=== PATIENT | male | born 1955 | race Caucasian/White ===

== ENCOUNTER 2024-01-26 13:30 | Outpatient (OUT) | payer OTHER, SELFPAY ==
--- NOTE | 2024-01-26 13:39 | ECG_ITS ---
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
--- NOTE | 2024-01-26 14:22 | P.GSHP_ITS ---
History of Present Illness History of Present Illness Chief complaint: RIGHT KIDNEY STONE Narrative: Patient presents for preadmission testing. Please see HPI from Dr. Mclain office dated 01/17/2024. Review of Systems ROS Narrative Please see ROS from Dr. Mclain office dated 01/17/2024. [facility] Medical History (Updated 01/26/24 @ 14:07 by Brittany Johnston NP) Urinary urgency ?R39.15 - Urgency of urination (ICD-10) Umbilical hernia ?K42.9 - Umbilical hernia without obstruction or gangrene (ICD-10) Constipation ?K59.00 - Constipation, unspecified (ICD-10) Nocturia ?R35.1 - Nocturia (ICD-10) Nasal congestion ?R09.81 - Nasal congestion (ICD-10) COVID-19 ?U07.1 - COVID-19 (ICD-10) Sleep apnea ?G47.30 - Sleep apnea, unspecified (ICD-10) GERD (gastroesophageal reflux disease) ?K21.9 - Gastro-esophageal reflux disease without esophagitis (ICD-10) Kidney stones ?N20.0 - Calculus of kidney (ICD-10) Heartburn ?R12 - Heartburn (ICD-10) High cholesterol ?E78.00 - Pure hypercholesterolemia, unspecified (ICD-10) Diabetes ?E11.9 - Type 2 diabetes mellitus without complications (ICD-10) Melanocytic nevi of trunk ?D22.5 - Melanocytic nevi of trunk (ICD-10) Impotence ?N52.9 - Male erectile dysfunction, unspecified (ICD-10) Incomplete bladder emptying ?R33.9 - Retention of urine, unspecified (ICD-10) Fatigue ?R53.83 - Other fatigue (ICD-10) Dysphagia ?R13.10 - Dysphagia, unspecified (ICD-10) Hearing loss ?H91.90 - Unspecified hearing loss, unspecified ear (ICD-10) BPH (benign prostatic hyperplasia) ?N40.0 - Benign prostatic hyperplasia without lower urinary tract symptoms (ICD-10) S/P extracorporeal shock wave therapy ?Z98.890 - Other specified postprocedural states (ICD-10) Surgical History (Updated 01/26/24 @ 14:07 by Brittany Johnston NP) S/P cystoscopy ?Z98.890 - Other specified postprocedural states (ICD-10) S/P ureteral stent placement ?Z96.0 - Presence of urogenital implants (ICD-10) H/O hand surgery ?Z98.890 - Other specified postprocedural states (ICD-10) History of colonoscopy ?Z98.890 - Other specified postprocedural states (ICD-10) Family History (Updated 01/26/24 @ 14:07 by Brittany Johnston NP) Other Cancer Family history of hypertension Family history of stroke Social History (Updated 01/26/24 @ 13:57 by Brittany Johnston NP) Within the past year, how often did you have a drink containing alcohol: monthly or less Smoking status: Never smoker Highest level of school completed/degree received: high school graduate Meds Home Medications and Allergies Home Medications ?Medication ?Instructions ?Recorded ?Confirmed ?Type famotidine 40 mg tablet 40 mg PO DAILY 01/26/24 01/26/24 History finasteride 5 mg tablet 5 mg PO DAILY 01/26/24 01/26/24 History fluticasone propionate 50 2 spray intranasal Q12H PRN nasal 01/26/24 01/26/24 History mcg/actuation nasal congestion spray,suspension lactobacillus combination no.4 3 3,000 mmu cells PO DAILY 01/26/24 01/26/24 History billion cell capsule (Probiotic) lovastatin 40 mg tablet 40 mg PO DAILY 01/26/24 01/26/24 History metformin 1,000 mg tablet 2,000 mg PO DAILY 01/26/24 01/26/24 History pioglitazone 45 mg tablet 45 mg PO DAILY 01/26/24 01/26/24 History potassium bicarbonate-citric acid 25 meq PO BID 01/26/24 01/26/24 History 25 mEq effervescent tablet (Klor-Con/EF) tamsulosin 0.4 mg capsule 0.4 mg PO DAILY 01/26/24 01/26/24 History turmeric 400 mg capsule mg PO 01/26/24 History Allergies Allergy/AdvReac Type Severity Reaction Status Date / Time No Known Drug Allergies Allergy Verified 01/26/24 13:54 Exam Narrative Exam Narrative: Constitutional: Awake, alert, comfortable, well-appearing, nontoxic, interactive, vital signs as charted Head: Normocephalic, atraumatic Neck: Supple, normal appearance, normal range of motion, no meningeal signs, no lymphadenopathy Respiratory: No respiratory distress, breath sounds clear Cardiovascular: Regular rate and rhythm, strong and regular heart tones Abdomen: Nontender, normal bowel sounds, soft, no CVA tenderness Musculoskeletal: Normal gait, no swelling or edema Skin: No rashes or induration, no lesions, only visible skin inspected Neuro: No neurological deficits, normal sensation Psychiatric: Oriented ?3, normal affect Assessment and Plan Assessment and Plan (1) Kidney stones: Plan Right ESWL scheduled with Dr. Mclain 02/09/2024.
[2024-01-26 14:35] LABS: Basophils Absolute Auto 0.1 10^3/uL (0.0-0.1); Basophils Percent Auto 0.7 % (0.2-2.0); Eosinophils Absolute Auto 0.1 10^3/uL (0.0-0.7); Eosinophils Percent Auto 1.9 % (0.9-7.0); Hemoglobin 13.9 g/dL (14.0-18.0); Immature Granulocytes Abs Auto 0.02 10^3/uL (0.00-0.03); Immature Granulocytes Pct Auto 0.3 % (0.0-0.5); Lymphocytes Absolute Auto 1.8 10^3/uL (1.2-3.8); Lymphocytes Percent Auto 24.1 % (20.5-60.0); Mean Corpuscular HGB Conc 33.1 g/dL (29.9-35.2); Mean Corpuscular Hemoglobin 32.2 pg (25.9-34.0); Mean Corpuscular Volume 97.2 fL (80.0-94.0); Mean Platelet Volume 10.3 fL (9.5-13.5); Monocytes Absolute Auto 0.6 10^3/uL (0.3-0.8); Monocytes Percent Auto 7.6 % (1.7-12.0); Neutrophils Absolute Auto 4.8 10^3/uL (1.4-6.5); Neutrophils Percent Auto 65.4 % (43.0-75.0); Platelet Count 222 10^3/uL (150-450); Red Blood Count 4.32 10^6/uL (4.70-6.10); Red Cell Distribution Width 13.1 % (11.0-15.0); White Blood Count 7.4 10^3/uL (4.0-11.0)
[2024-01-26 14:58] LABS: Anion Gap 14.5; BUN Creatinine Ratio 10.7; Calcium 9.4 mg/dL (8.5-10.1); Carbon Dioxide 25.3 mmol/L (21.0-32.0); Chloride 103 mmol/L (98-107); Estimated GFR (African America >60 (>=60); Estimated GFR (Non-African Ame 59 (>=60); Glucose 87 mg/dL (74-106); Potassium 3.8 mmol/L (3.5-5.1); Sodium 139 mmol/L (136-145)
[2024-01-26 15:27] LABS: INR 0.98; Partial Thromboplastin Time 28.5 sec (22.3-36.2); Prothrombin Time 10.4 sec (9.0-11.6)
== END 2024-01-26 13:31 | disposition home or self-care (01) ==
LOC: PST 13:34
PROVIDERS: Family Provider Family Medicine; PCP Family Medicine; Visit Provider Urology
DX: Z01.810 Encounter for preprocedural cardiovascular examination (principal); Z01.812 Encounter for preprocedural laboratory examination; Z01.818 Encounter for other preprocedural examination; N20.0 Calculus of kidney
CPT/HCPCS: 80048; 85025; 85610; 85730; 93005; G0463

== ENCOUNTER 2024-02-09 07:31 | Day surgery (SDC) | payer OTHER, SELFPAY ==
[2024-01-26 14:17] VITALS: BP 143/82; PULSE 62; TEMP 36.2; O2SAT 98; BMI 31.2
[2024-02-09] VITALS (12 sets, daily range): BP systolic 135–156; BP diastolic 73–87; PULSE 54–91; TEMP 36.2–36.4; O2SAT 92–100; BMI 31.3
--- NOTE | 2024-02-09 07:30 | XR_ITS ---
The [address] [address] Patient Name: YENNY HENDERSON MRN: [id number] date: 1955 Sex: M Assigned Patient Location: [facility] Current Patient Location: Accession/Order Number: [id number] Exam Date: 02/09/2024 07:40 Report Date: 02/10/2024 05:25 At the request of: GILES MENA Procedure: XR abdomen 1V EXAMINATION: XR abdomen 1V HISTORY: kidney stones COMPARISON: No relevant comparison available. FINDINGS: KIDNEY/URETER - RIGHT: 2 stones projecting over inferior pole, largest is 6 mm. KIDNEY/URETER - LEFT: Several tiny calcifications projecting over superior pole. PELVIS: No visible ureteral stones. BOWEL: No abnormal dilation or deviation. BONES: No acute abnormality. OTHER: Negative. No abnormal gaseous collections. XR/XR abdomen 1V IMPRESSION: 1. Bilateral nephrolithiasis. No prior studies for comparison. Electronically authenticated by: JEFF CHAMBERLAIN Date: 02/10/2024 05:25
[2024-02-09 08:01] LABS: Glucometer 98 mg/dL (74-106)
[2024-02-09] MEDS: LACTATED RINGER'S SOLUTION 1,000 ML 50 ML IV ×2 (08:10→10:18)
[2024-02-09] MEDS: CEFAZOLIN SODIUM/DEXTROSE,ISO 1 GM/50 ML IV.SOLN IV (08:50)
--- NOTE | 2024-02-09 09:37 | P.URON_ITS ---
Urology Surgery Operative Note Operative Note Procedure Date: 02/09/24 Time Out Performed: yes Pre-op Diagnosis: Right nephrolithiasis Post-op Diagnosis: same as pre-op Procedures performed: 1. Right ESWL. Anesthesia: General-LMA Primary Surgeon: Felipe Mclain Complications: None Estimated blood loss (mL): 0 Findings: 2, nonobstructing right renal calculi Specimens: None Drains: None Indications for Procedures: This gentleman has recurrent right nephrolithiasis. He has 2 stones each of which are 4 to 5 mm in the lower pole. He now presents for right ESWL. He has signed an informed consent after risks were explained. Some of these risks include bleeding, perinephric hematoma, infection and anesthesia to name a few. Detailed description of Procedure: The patient was brought to the Operating Room and placed on Siemens electromagnetic lithotripsy treatment table in the supine position. SCDs were placed on their lower extremities and turned on and functioning during the entire case. Timeout was done by all parties in the room. We all agreed upon the patient's identification and the planned procedures for this patient. General Anesthesia was then administered via LMA. Treatment head was then brought to the patient's correct side. While using flourscopy the stones were identified and lined up into the crosshairs. Both stones were within the blast path. We then began applying shocks at power level 2.0 and increased to a maximum power level of 3.5. Intermittent fluoroscopy showed that the stones slowly began changing shape. We applied a total of 3000 shocks. Our last fluoroscopic image revealed presumed fragmentation and gravel forming within calyces. The procedure was then terminated. [facility] then [facility] and wheeled to PACU in stable condition.
== END 2024-02-09 11:30 | disposition home or self-care (01) ==
PROVIDERS: Family Provider Family Medicine; PCP Family Medicine; Visit Provider Urology
PROC: (CPT 873; principal; 2024-02-09 08:50)
DX: N20.0 Calculus of kidney (principal); K21.9 Gastro-esophageal reflux disease without esophagitis; N40.1 Benign prostatic hyperplasia with lower urinary tract symptoms; G47.30 Sleep apnea, unspecified; E11.9 Type 2 diabetes mellitus without complications; R39.15 Urgency of urination; R35.1 Nocturia; Z86.16 Personal history of COVID-19; E78.00 Pure hypercholesterolemia, unspecified; N52.9 Male erectile dysfunction, unspecified; R33.9 Retention of urine, unspecified; H91.90 Unspecified hearing loss, unspecified ear; Z79.84 Long term (current) use of oral hypoglycemic drugs; E66.9 Obesity, unspecified; Z87.442 Personal history of urinary calculi; Z68.31 Body mass index [BMI] 31.0-31.9, adult
CPT/HCPCS: 50590; 36415; 74018; 82948; J1094; J2704

== ENCOUNTER 2024-03-08 08:59 | Day surgery (SDC) | payer OTHER, SELFPAY ==
[2024-03-08] VITALS (13 sets, daily range): BP systolic 130–182; BP diastolic 79–98; PULSE 54–93; TEMP 36.4; O2SAT 94–99; BMI 30.9
--- NOTE | 2024-03-08 | FL_ITS ---
[address] [address] Patient Name: YENNY HENDERSON MRN: [id number] date: 1955 Sex: M Assigned Patient Location: [facility] Current Patient Location: [facility] Accession/Order Number: [id number] Exam Date: 03/08/2024 12:00 Report Date: 03/09/2024 08:17 At the request of: GILES MENA Procedure: FL fluoroscopy <1hr NON-READ EXAM: FL fluoroscopy <1hr NON-READ HISTORY: TECHNIQUE: FINDINGS: Please see Operative Report. Electronically authenticated by: RADIOLOGIST NO Date: 03/09/2024 08:17
[2024-03-08 09:18] LABS: Glucometer 90 mg/dL (74-106)
[2024-03-08] MEDS: LACTATED RINGER'S SOLUTION 1,000 ML 50 ML IV ×2 (09:26→12:48)
[2024-03-08] MEDS: CEFAZOLIN SODIUM/DEXTROSE,ISO 1 GM/50 ML IV.SOLN IV (11:42)
--- NOTE | 2024-03-08 13:05 | PM.URSON ---
Urology Surgery Operative Note Operative Note Procedure Date: 03/08/24 Time Out Performed: yes Pre-op Diagnosis: Right ureteral and renal calculi Post-op Diagnosis: same as pre-op Procedures performed: 1. Cystoscopy. 2. Right ureteroscopy. 3. Thulium laser lithotripsy of right ureteral calculi. 4. Thulium laser lithotripsy of right renal calculi.5. Placement of 6 Pakistani variable length right ureteral stent Anesthesia: General-LMA Primary Surgeon: Felipe Mclain Complications: None Estimated blood loss (mL): 5 Findings: 2 right proximal ureteral calculi and multiple less than 5 mm right renal calculi Specimens: None Drains: 6 Pakistani variable length right ureteral stent Indications for Procedures: This gentleman has obstructing right ureteral calculi and ipsilateral right renal calculi. He now presents for ureteroscopic stone manipulation and probable stent placement. He has signed an informed consent for these procedures after risks were explained. Detailed description of Procedure: The patient was brought to the operating room and placed on the operating room table in the supine position. SCDs were placed on the lower extremities and turned on and functioning during the entire case. Timeout was done by all parties in the room. We all agreed upon the patient's identification and the planned procedures for this patient. Genn. anesthesia was then administered. The patient was then repositioned into the modified dorsal lithotomy position. All pressure points were satisfactorily padded. Genitalia were sterilely prepped and draped in usual fashion.I started by passing a 22 Pakistani Olympus cystoscope per urethra and into the bladder. Anterior urethra was normal. Prostatic urethra showed bilobar obstruction. Panendoscopy in the bladder showed no evidence of any tumors or stones.I then passed a Glidewire through the scope and cannulated the right ureter and was able to get the wire up into the kidney. I then remove the scope and then passed a 10/12 Pakistani ureteral access sheath over the wire and up the right ureter to the L5 position.I then removed the stylette and wire. I then passed a flexible ureteroscope through the access sheath and into the ureter. As I arrived at the proximal aspect of the ureter I found 2 stones. I then passed a 200 Angstrom laser fiber and made contact with the stones. I began doing thulium laser lithotripsy at 6 W continuously in the fragment mode. Once these were fragmented I then advanced up into the kidney and looked into all the calyces. There were several smaller stones. Each of these was dusted at 6 to 8 W of energy. I then found to stones that were in the 4 to 5 mm size. These were similarly dusted within the midpole. I could see the stones on fluoroscopy beforehand. Once I was done lasering I could not appreciate any stones by fluoroscopy. The scope was then removed. I then passed a Glidewire through the sheath into the kidney and remove the sheath. The cystoscope was backloaded over the wire and passed into the bladder. I then slid a 6 Pakistani variable length stent over the wire up into the kidney. The wire was removed and there were good curls in the kidney and in the bladder. The bladder was drained of its contents and the scope was then removed. He was then transferred to a reastport bed and wheeled to PACU in stable condition.
[2024-03-08] MEDS: HYDROMORPHONE HCL 0.5 MG/0.5 ML SYRINGE IV ×2 (13:18→13:30)
[2024-03-08] MEDS: SOLIFENACIN SUCCINATE 10 MG TABLET PO (13:20)
--- NOTE | 2024-03-08 13:38 | PC.NURSE ---
Medicated with Dilaudid as ordered
--- NOTE | 2024-03-08 13:44 | PC.NURSE ---
Medicated as ordered for pain
--- NOTE | 2024-03-08 15:05 | PC.NURSE ---
1500-pt voids without difficulty,baldwin red without clots.
== END 2024-03-08 15:35 | disposition home or self-care (01) ==
PROVIDERS: Family Provider Family Medicine; PCP Family Medicine; Visit Provider Urology
PROC: (CPT 918; principal; 2024-03-08 10:10)
DX: N20.2 Calculus of kidney with calculus of ureter (principal); Z86.16 Personal history of COVID-19; E11.9 Type 2 diabetes mellitus without complications; Z79.84 Long term (current) use of oral hypoglycemic drugs
CPT/HCPCS: 52356; 36415; 76000; 82948; J1094; J1170; J2704

== ENCOUNTER 2024-04-03 10:44 | Day surgery (SDC) | payer OTHER, SELFPAY ==
[2024-04-03] MEDS: LIDOCAINE 2% JELLY 10 ML UR (11:17)
[2024-04-03 11:22] VITALS: BP 138/80; BP 148/87; PULSE 71; PULSE 73; O2SAT 99
--- NOTE | 2024-04-03 11:24 | PM.URSON ---
Urology Surgery Operative Note Operative Note Procedure Date: 04/03/24 Time Out Performed: yes Pre-op Diagnosis: . Status post ureteroscopic stone manipulation and right stent placement Post-op Diagnosis: same as pre-op Procedures performed: 1. Cystoscopy. 2. Right stent removal. Anesthesia: local Primary Surgeon: Felipe Mclain Complications: None Estimated blood loss (mL): 0 Findings: Non encrusted stent Indications for Procedures: This gentleman had right-sided ureteroscopic stone manipulation and stent placement March 08. He now presents for cystoscopy and right stent removal. He has signed an informed consent. Detailed description of Procedure: The patient was kept on the [facility] bed and brought to the endoscopy suite. He was in the supine position. Timeout was done by all parties in the room. We all agreed upon the patient's identification and the planned procedures for this patient. The genitalia were sterilely prepped and draped in the usual fashion. 2% Xylocaine jelly was passed per urethra. I started by passing a flexible cystoscope per urethra and into the bladder. The non- encrusted stent was identified. A flexible grasping forceps was passed through the scope and the stent was grasped. The scope and stent were then removed without difficulty. He was then discharged to home.
== END 2024-04-03 11:29 | disposition home or self-care (01) ==
LOC: SURGOUT 10:45
PROVIDERS: Family Provider Family Medicine; PCP Family Medicine; Visit Provider Urology
PROC: (CPT 52310; principal; 2024-04-03 09:15)
DX: Z46.6 Encounter for fitting and adjustment of urinary device (principal); Z87.442 Personal history of urinary calculi
CPT/HCPCS: 52310